=== PATIENT | male | born 1970 | race Asian ===

== ENCOUNTER 2019-04-04 14:59 | Emergency (ER) | payer BC, OTHER ==
--- NOTE | 2019-04-04 15:24 | ED Physician Documentation ---
History of Present Illness - Stated complaint Stated Complaint: HEADACHE/HIGH BP - Chief complaint Chief Complaint: Neuro - History obtained from History obtained from: Patient - Additonal information Additional information: Patient is a 49-year-old male with history of hypertension, hyperlipidemia, diabetes presenting with persistent elevations in blood pressure associated with headaches. Patient notes that over the past 2 weeks he has had elevated blood pressures at home. Patient reports systolic measurements in the [id number] and diastolic measurements around 110s. Patient has been compliant with his medications of simvastatin, lisinopril, and HCTZ. Patient has not yet contacted his primary care physician. Patient denies any recent medication changes or other inciting incident. Patient does associate headache with his elevated blood pressures. Earlier today he also had an episode of nausea with vomiting. Patient denies any significant vision changes, paresthesias, paralysis, chest pain, difficulty breathing, abdominal pain, urinary or stool changes, fever, cough, or other concerns.No other improving or worsening factors noted. Review of Systems Constitutional: denies: Fever Eyes: denies: Loss of vision Cardiac: denies: Chest pain / pressure Respiratory: denies: Dyspnea GI: reports: Nausea, Vomiting. denies: Abdominal Pain Neurologic: reports: Headache PD PAST MEDICAL HISTORY - Past Medical History Cardiovascular: Hypertension, High cholesterol Endocrine/Autoimmune: Type 2 diabetes Musculoskeletal: Gout - Past Surgical History Past Surgical History: No - Present Medications Home Medications: Ambulatory Orders Medication Instructions Recorded Confirmed Allopurinol 300 mg PO 08/16/16 Aspirin [Aspir-Low] 81 mg PO 08/16/16 Simvastatin [Zocor] 40 mg PO 08/16/16 08/16/16 metFORMIN [Glucophage] 500 mg PO BIDWM 08/16/16 08/16/16 Lisinopril 40 mg PO 04/04/19 hydroCHLOROthiazide 25 mg PO 04/04/19 04/04/19 [Hydrochlorothiazide] - Allergies Allergies/Adverse Reactions: Allergies Allergy/AdvReac Type Severity Reaction Status Date / Time No Known Drug Allergies Allergy Verified 04/04/19 15:03 - Social History Does the pt smoke?: No Smoking Status: Never smoker - Immunizations Immunizations are current?: Yes PD ED PE NORMAL - Vitals Vital signs reviewed: Yes (Hypertensive) - General General: Alert and oriented X 3, No acute distress, Well developed/nourished - HEENT HEENT: Atraumatic, PERRL, EOMI (No nystagmus. Gross visual acuity intact.), Moist mucous membranes - Cardiac Cardiac: RRR, No murmur - Respiratory Respiratory: No respiratory distress, Clear bilaterally - Abdomen Abdomen: Soft, Non tender, Non distended - Derm Derm: Normal color, Warm and dry, No rash - Extremities Extremities: No deformity, No tenderness to palpate - Neuro Neuro: Alert and oriented X 3, No motor deficit, No sensory deficit - Psych Psych: Normal mood, Normal affect Results - Vitals Vitals: Vital Signs - 24 hr 04/04/19 04/04/19 04/04/19 15:02 15:29 16:04 Temperature 36.2 C L Heart Rate 77 73 71 Respiratory 18 18 18 Rate Blood Pressure 177/103 H 166/122 H 168/113 H O2 Saturation 100 96 97 04/04/19 17:03 Temperature Heart Rate 80 Respiratory 18 Rate Blood Pressure 168/116 H O2 Saturation 99 Oxygen O2 Source Room air - Labs Labs: Laboratory Tests 04/04/19 04/04/19 04/04/19 15:25 15:25 15:25 WBC 8.4 RBC 5.50 Hgb 15.3 Hct 45.7 MCV 83.0 MCH 27.8 MCHC 33.5 RDW 14.3 Plt Count 333 MPV 8.1 Neut # (Auto) 5.6 Lymph # (Auto) 2.0 [place] # (Auto) 0.6 Eos # (Auto) 0.2 Baso # (Auto) 0.1 Absolute Nucleated RBC 0.01 Nucleated RBC % 0.1 Sodium 138 Potassium 3.3 L Chloride 96 L Carbon Dioxide 28 Anion Gap 14.0 H BUN 14 Creatinine 0.9 Estimated GFR (MDRD) 90 Glucose 125 H Calcium 9.6 Total Bilirubin 0.7 AST 19 ALT 24 Alkaline Phosphatase 66 Troponin I < 0.04 Total Protein 8.3 H Albumin 4.6 Globulin 3.7 Albumin/Globulin Ratio 1.2 Lipase 32 PD MEDICAL DECISION MAKING - ED course Complexity details: reviewed results, re-evaluated patient, considered differential, d/w patient, d/w family, d/w storage consultant ED course: Patient is presenting with acute on chronic hypertension. Patient denies any new medications or other inciting incidents. No new trauma. Patient is complaining of associated symptoms of nausea, vomiting, and headache. Do not feel this is migraine related. Also have lower suspicion for stroke, intracranial injury, thrombus, or hemorrhage, but plan to obtain CT imaging to further evaluate. Also obtain further screening lab work and EKG to evaluate for possible endorgan damage due to possible Hypertensive urgency or emergency. Continue to monitor blood pressures in ED and did not feel that patient required IV medication, particularly as do not want to lower blood pressure significantly and suddenly, but provided increased doses of his home medications of lisinopril and HCTZ. Screening lab work and EKG returned relatively unremarkable including negative troponin and creatinine within normal limits. CT imaging found incidental finding of pituitary mass and changes of the frontal lobe. Given these findings and radiology recommendation, felt appropriate to obtain MRI brain. Do feel that patient will need better hypertensive control and will recommend increasing doses and close primary care follow-up for this issue. Otherwise, further disposition will be dependent on MRI, although if nothing acutely is found, patient can likely discharge home and obtain primary care follow-up for this as well. Patient may require neurology follow-up to. Patient signed out to Dr. Trevino who will follow up on MRI. Patient is advised of results and recommendations and is amenable to this plan. Departure - Departure Clinical Impression: Headache Qualifiers: Headache type: unspecified Headache chronicity pattern: acute headache Intractability: not intractable Qualified Code(s): R51 - Headache Hypertension Qualifiers: Hypertension type: essential hypertension Qualified Code(s): I10 - Essential (primary) hypertension Condition: Good
[2019-04-04 15:43] LABS: BASOPHILS # (AUTO) 0.1 10^3/uL (0.0-0.1); EOSINOPHILS # (AUTO) 0.2 10^3/uL (0.0-0.7); EOSINOPHILS % (AUTO) 2.6 %; HGB - HEMOGLOBIN 15.3 g/dL (14.0-18.0); LYMPHOCYTES % (AUTO) 23.6 %; MEAN CORPUSCULAR HEMOGLOBIN 27.8 pg (27.0-31.0); MEAN CORPUSCULAR HGB CONC 33.5 g/dL (32.0-36.0); MEAN PLATELET VOLUME 8.1 fL (7.4-11.4); MONOCYTES # (AUTO) 0.6 10^3/uL (0.0-1.0); MONOCYTES % (AUTO) 6.6 %; NEUTROPHILS # (AUTO) 5.6 10^3/uL (1.5-6.6); NEUTROPHILS % (AUTO) 66.2 %; PLT - PLATELET COUNT 333 10^3/uL (130-450); RED CELL DISTRIBUTION WIDTH 14.3 % (12.0-15.0); WHITE BLOOD COUNT 8.4 x10^3/uL (4.8-10.8)
[2019-04-04 15:52] LABS: ALBUMIN 4.6 g/dL (3.2-5.5); ALBUMIN/GLOBULIN RATIO 1.2 (1.0-2.2); BILIRUBIN,TOTAL 0.7 mg/dL (0.2-1.0); CALCIUM 9.6 mg/dL (8.5-10.3); CREATININE 0.9 mg/dL (0.6-1.2); TOTAL PROTEIN 8.3 g/dL (6.7-8.2)
[2019-04-04] MEDS ORDERED: hydroCHLOROthiazide 25 MG TABLET PO STA (16:39)
[2019-04-04] MEDS ORDERED: LISINOPRIL 5 MG TABLET PO STA (16:39)
--- NOTE | 2019-04-04 16:47 | CT Report ---
Reason: worsening headache with hypertension Procedure Date: 04/04/2019 Accession Number: [id number] / [id number] Procedure: CT - HEAD WO CPT Code: FULL RESULT: EXAM: CT HEAD EXAM DATE: 04/04/2019 03:54 PM. CLINICAL HISTORY: Worsening headache with hypertension. COMPARISON: None. TECHNIQUE: Multiaxial CT images were obtained from the foramen magnum to the vertex. Reformats: Sagittal and coronal. IV contrast: None. In accordance with CT protocol optimization, one or more of the following dose reduction techniques were utilized for this exam: automated exposure control, adjustment of mA and/or KV based on patient size, or use of iterative reconstructive technique. FINDINGS: Parenchyma: No definite mass-effect or midline shift. No definite intraparenchymal hemorrhage. No definite infarct. There is asymmetric appearance of the right frontal cortex with diminished sulci and appearance suspicious for cortical thickening. This is suspicious for possible neoplasm such as glioma. There is possible/equivocal minimal associated increased density for which very mild cortical/petechial hemorrhage or minimal subarachnoid hemorrhage would be difficult to exclude but definite hemorrhage is not confirmed. Extraaxial Spaces: Enlargement/mass of the pituitary measuring 1.5 x 1.7 x 1.6 cm. It is of intermediate density. No definite high density needed to confirm a recent hemorrhage. There is an approximate 2.3 x 5.2 x 4.6 cm nodular calcification along its upper margin. No gross fat density. This abuts the optic nerve/chiasm. No subdural or epidural collections identified. Ventricles: Normal in size and position. Sinuses and Orbits: Small focal soft tissue thickening within a few left ethmoid air cells, particularly anteriorly in the region of the frontal ethmoidal recess and extending into the posterior, inferior left frontal sinus. Partial demonstration of mild soft tissue thickening within the anterior medial left maxillary sinus. Otherwise, the imaged paranasal sinuses, orbits, and mastoids show no significant abnormality. Bones: No evidence of fracture or calvarial defect. Other: None. IMPRESSION: 1. Enlarged pituitary, highly suspicious for a mass. Other etiologies such as aneurysm cannot be excluded on this exam. Pituitary MR protocol imaging is recommended. 2. Abnormal appearance of the right frontal cortex, as detailed above. Neoplasm such as glioma is a consideration. There is some possible minimal/subtle increased density for which some minimal hemorrhage would be difficult to exclude but no definite intracranial hemorrhage is demonstrated. Brain MR imaging is recommended. RADIA The call report notification system was initiated by Dr. Fredi Berkowitz at 04:37 PM on 04/04/2019. The above call report findings were discussed with June Roland by Dr. Fredi Berkowitz at 04:43 PM on 04/04/2019.
[2019-04-04] MEDS ORDERED: LISINOPRIL 20 MG TABLET PO STA (17:00)
[2019-04-04] MEDS ORDERED: GADOBUTROL 7.5 MMOL/7.5 ML VIAL ONE (17:41)
[2019-04-04] MEDS ORDERED: GADOBUTROL 7.5 MMOL/7.5 ML VIAL IV ONE (18:27)
--- NOTE | 2019-04-04 20:47 | MRI Report ---
Reason: pituitary tumor, frontal lobe changes-CT, headache Procedure Date: 04/04/2019 Accession Number: [id number] / [id number] Procedure: MRI - Brain W/WO CPT Code: FULL RESULT: EXAM: MRI BRAIN AND PITUITARY WITHOUT AND WITH CONTRAST. EXAM DATE: 04/04/2019 06:49 PM. CLINICAL HISTORY: 49-year-old male. Pituitary tumor, frontal lobe changes-CT, headache. COMPARISON: CT head 04/04/2019 TECHNIQUE: Multiplanar, multisequence T1-weighted and fluid-sensitive MR sequences of the brain and pituitary were performed. Other: None. IV Contrast: 7.5 ML Gadavist. FINDINGS: Brain Volume: Normal for age. Parenchyma/extra-axial spaces: Corresponding to abnormality seen on the prior CT involving the anterior right frontal lobe, this MR demonstrates sulcal FLAIR hyperintensities (series 601 image 23), with associated susceptibility artifact on the susceptibility weighted imaging (series 701 image 23), therefore most consistent with acute subarachnoid hemorrhage. No masses, infarcts, or hemorrhage. No white matter lesions identified. No abnormal enhancement. 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 Given marked leftward deviation of the pituitary infundibulum, the normal pituitary gland is likely that the left of the mass although not clearly visualized. The mass abuts the prechiasmatic optic nerves as well as the optic chiasm, likely resulting in moderate mass-effect. Ventricles/Cisterns: No hydrocephalus. No abnormal extra-axial fluid collection or hemorrhage. Orbits: Symmetric and unremarkable. IAC: Symmetric and unremarkable. Vasculature: Normal signal flow void is seen in the major arterial structures at the skull base. The dural sinuses are patent and enhance normally. Sinuses: No acute sinus disease. Bones: No focal pathologic appearing marrow signal changes. Other: None. IMPRESSION: 1. Corresponding to abnormality seen on the prior CT involving the anterior right frontal lobe, this MR demonstrates sulcal FLAIR hyperintensities (series 601 image 23), with associated susceptibility artifact on the susceptibility weighted imaging (series 701 image 23), therefore most consistent with acute subarachnoid hemorrhage. 2. 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 Given marked leftward deviation of the pituitary infundibulum, the normal pituitary gland is likely that the left of the mass although not clearly visualized. The mass abuts the prechiasmatic optic nerves as well as the optic chiasm, likely resulting in moderate mass-effect. 3. No MRI evidence of acute or subacute infarct, acute intracranial hemorrhage, parenchymal mass, midline shift, or hydrocephalus. No abnormal parenchymal enhancement. RADIA The critical result notification system was initiated by Dr. Candy Sullivan at 08:35 PM on 04/04/2019. The above critical result findings were discussed with Dr. Craft by Dr. Candy Sullivan at 08:41 PM on 04/04/2019.
[2019-04-04] MEDS ORDERED: HYDROmorphone 1 MG/ML CARPUJECT IVP STA (20:50)
[2019-04-04] MEDS ORDERED: niCARdipine 20 MG/200 ML 20 MG/200 ML BAG IV STA (20:55)
--- NOTE | 2019-04-04 20:56 | ED Physician Documentation ---
History of Present Illness - Stated complaint Stated Complaint: HEADACHE/HIGH BP - Chief complaint Chief Complaint: Neuro PD PAST MEDICAL HISTORY - Past Medical History Past Medical History: Yes Cardiovascular: Hypertension, High cholesterol Endocrine/Autoimmune: Type 2 diabetes : Kidney stones Musculoskeletal: Gout - Past Surgical History Past Surgical History: No - Present Medications Home Medications: Ambulatory Orders Medication Instructions Recorded Confirmed Allopurinol 300 mg PO 08/16/16 Aspirin [Aspir-Low] 81 mg PO 08/16/16 Simvastatin [Zocor] 40 mg PO 08/16/16 08/16/16 metFORMIN [Glucophage] 500 mg PO BIDWM 08/16/16 08/16/16 Lisinopril 40 mg PO 04/04/19 hydroCHLOROthiazide 25 mg PO 04/04/19 04/04/19 [Hydrochlorothiazide] - Allergies Allergies/Adverse Reactions: Allergies Allergy/AdvReac Type Severity Reaction Status Date / Time No Known Drug Allergies Allergy Verified 04/04/19 15:03 - Social History Does the pt smoke?: No Smoking Status: Never smoker - Immunizations Immunizations are current?: Yes Results - Vitals Vitals: Vital Signs - 24 hr 04/04/19 04/04/19 04/04/19 15:02 15:29 16:04 Temperature 36.2 C L Heart Rate 77 73 71 Respiratory 18 18 18 Rate Blood Pressure 177/103 H 166/122 H 168/113 H O2 Saturation 100 96 97 04/04/19 04/04/19 04/04/19 17:03 19:14 20:54 Temperature Heart Rate 80 72 87 Respiratory 18 18 20 Rate Blood Pressure 168/116 H 162/104 H 172/113 H O2 Saturation 99 99 98 04/04/19 21:17 Temperature Heart Rate 95 Respiratory 15 Rate Blood Pressure 153/89 H O2 Saturation 100 Oxygen O2 Source Room air - Labs Labs: Laboratory Tests 04/04/19 04/04/19 04/04/19 15:25 15:25 15:25 WBC 8.4 RBC 5.50 Hgb 15.3 Hct 45.7 MCV 83.0 MCH 27.8 MCHC 33.5 RDW 14.3 Plt Count 333 MPV 8.1 Neut # (Auto) 5.6 Lymph # (Auto) 2.0 [place] # (Auto) 0.6 Eos # (Auto) 0.2 Baso # (Auto) 0.1 Absolute Nucleated RBC 0.01 Nucleated RBC % 0.1 Sodium 138 Potassium 3.3 L Chloride 96 L Carbon Dioxide 28 Anion Gap 14.0 H BUN 14 Creatinine 0.9 Estimated GFR (MDRD) 90 Glucose 125 H Calcium 9.6 Total Bilirubin 0.7 AST 19 ALT 24 Alkaline Phosphatase 66 Troponin I < 0.04 Total Protein 8.3 H Albumin 4.6 Globulin 3.7 Albumin/Globulin Ratio 1.2 Lipase 32 - Rads (name of study) MRI brain Radiology: Prelim report reviewed, EMP read contemporaneously, See rad report (Corresponding to abnormality seen on the prior CT involving the anterior right frontal lobe, this MR demonstrates sulcal FLAIR hyperintensities (series 601 image 23), with associated susceptibility artifact on the susceptibility weighted imaging (series 701 image 23), therefore most consistent with acute subarachnoid hemorrhage. 2. 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 Given marked leftward deviation of the pituitary infundibulum, the normal pituitary gland is likely that the left of the mass although not clearly visualized. The mass abuts the prechiasmatic optic nerves as well as the optic chiasm, likely resulting in moderate mass- effect. 3. No MRI evidence of acute or subacute infarct, acute intracranial hemorrhage, parenchymal mass, midline shift, or hydrocephalus. No abnormal parenchymal enhancement. ) PD MEDICAL DECISION MAKING - ED course Complexity details: reviewed results, re-evaluated patient, considered differential, d/w patient, d/w family, d/w political consultant ED course: Patient signed out to me by Dr. Roland, see her note for full H&P. Briefly he has had worsening headaches for the past 2 weeks, significantly worsened today. Has a history of hypertension that is steadily rising over the past [address] revealed possible pituitary microadenoma and glioma versus blood in the frontal lobes. Found to have subarachnoid hemorrhage on MRI. [facility] was contacted but they do not have any beds tonight. Therefore [facility] was contacted. Patient was started on a nicardipine drip for blood pressure here. 2[address] Discussed the case with Dr. Miranda, emergency department physician at [facility] who graciously accepts in transfer. Goal blood pressure will be 120-130. COBRA froms completed. Patient transferred Departure - Departure Disposition: 02 Transfer Acute Care [facility] Clinical Impression: Subarachnoid hemorrhage, Pituitary macroadenoma Headache Qualifiers: Headache type: unspecified Headache chronicity pattern: acute headache Intrac tability: not intractable Qualified Code(s): R51 - Headache Hypertension Qualifiers: Hypertension type: essential hypertension Qualified Code(s): I10 - Essential (primary) hypertension Condition: Stable
[2019-04-04 21:18] VITALS: BP 153/89
== END 2019-04-04 21:25 | disposition short-term general hospital (02) ==
LOC: ED 14:59
DX: I60.9 Nontraumatic subarachnoid hemorrhage, unspecified (principal); D35.2 Benign neoplasm of pituitary gland; I10 Essential (primary) hypertension; R11.2 Nausea with vomiting, unspecified; E78.5 Hyperlipidemia, unspecified; E11.9 Type 2 diabetes mellitus without complications; Z79.84 Long term (current) use of oral hypoglycemic drugs; Z79.82 Long term (current) use of aspirin
CPT/HCPCS: 36415; 70450; 70553; 80053; 83690; 84484; 85025; 93005; 96365; 96375; 99284; A9270; A9585; J1170

== ENCOUNTER 2019-04-04 21:26 | Outpatient (CLI) | payer BC, OTHER | END 2019-04-04 21:27 | disposition short-term general hospital (02) | LOC: EMS 21:26 | PROVIDERS: ATTEND Surgery | DX: I60.9 Nontraumatic subarachnoid hemorrhage, unspecified (principal) | CPT/HCPCS: A0425; A0426 ==

== ENCOUNTER 2020-11-07 17:35 | Outpatient (CLI) | payer BC, OTHER | END 2020-11-07 17:36 | disposition home or self-care (01) | LOC: COV 17:35 | PROVIDERS: ATTEND Family Medicine | DX: Z20.822 Contact with and (suspected) exposure to COVID-19 (principal) ==